=== PATIENT | female | born 1995 | race Caucasian/White ===

== ENCOUNTER 2017-01-13 10:29 | Emergency (ER) | payer OTHER ==
[~2017-01-13] VITALS: Ht 165.1 cm; Wt 49.9 kg
[~2017-01-13 10:29] MED LIST: A.E.R PADS1 JAR TOP; AMOXICILLIN500 M1 PO; APAP500 PO; COLACE 100 MG100 MG PO; DERMOPLAST SPRA56 ML; HYDROCORTISONE30 G9 RECTAL; IBUPROFEN 800800 M1 PO; IROSPAN 24/6 T1 EACH PO; LANOLIN56 GM; PRENATABS FA T1 EACH PO; ZOFRAN ODT4 MG PO
[2017-01-13] MEDS ORDERED: PREDNISONE 20 M20 MG PO (11:22)
[2017-01-13] MEDS ORDERED: AFRIN15 ML NS (11:22)
[2017-01-13] MEDS ORDERED: MOBIC15 MG PO (11:36)
[2017-01-13 12:03] VITALS: BP 114/64
== END 2017-01-13 12:04 | disposition home or self-care (01) ==
LOC: ER 10:29
DX: J06.9 Acute upper respiratory infection, unspecified (principal); G44.209 Tension-type headache, unspecified, not intractable

== ENCOUNTER 2017-04-09 11:31 | Emergency (ER) | payer OTHER ==
[~2017-04-09] VITALS: Ht 165.1 cm; Wt 49.9 kg
[~2017-04-09 11:31] MED LIST changes: +AFRIN15 ML NS; +MOBIC15 MG PO; +PREDNISONE 20 M20 MG PO
[2017-04-09] MEDS ORDERED: TIZANIDINE HCL4 MG PO (13:35)
[2017-04-09] MEDS ORDERED: NAPROSYN500 MG PO (13:35)
[2017-04-09 14:13] VITALS: BP 120/75
== END 2017-04-09 14:15 | disposition home or self-care (01) ==
LOC: ER 11:31
DX: F41.9 Anxiety disorder, unspecified (principal); F10.99 Alcohol use, unspecified with unspecified alcohol-induced disorder

== ENCOUNTER 2017-05-16 13:57 | Emergency (ER) | payer OTHER ==
[~2017-05-16] VITALS: Ht 165.1 cm; Wt 47.6 kg
[~2017-05-16 13:57] MED LIST changes: +NAPROSYN500 MG PO; +TIZANIDINE HCL4 MG PO
[2017-05-16 13:58] VITALS: BP 124/72
[2017-05-16 14:24] LABS: URINE BILIRUBIN NEGATIVE (Negative); URINE BLOOD NEGATIVE (Negative); URINE COLOR YELLOW; URINE GLUCOSE-RANDOM* NEGATIVE (Negative); URINE KETONES NEGATIVE (Negative); URINE LEUKOCYTES-REFLEX NEGATIVE (Negative); URINE PROTEIN (DIPSTICK) NEGATIVE (Negative); URINE UROBILINOGEN 0.2 E.U./dl (0.2-1.0)
[2017-05-17 14:09] LABS: CHLAMYDIA TRACHOMATIS-PCR Negative (Negative); NEISSERIA GONORRHEA-PCR Negative (Negative)
== END 2017-05-16 16:20 | disposition home or self-care (01) ==
LOC: ER 13:57
PROVIDERS: Emergency Medicine
DX: N76.0 Acute vaginitis (principal); F10.99 Alcohol use, unspecified with unspecified alcohol-induced disorder

== ENCOUNTER 2017-06-18 09:23 | Emergency (ER) | payer OTHER ==
[~2017-06-18] VITALS: Ht 165.1 cm; Wt 59.0 kg
[2017-06-18] MEDS ORDERED: LEXAPRO 10 MG T10 M2 PO (09:33)
[2017-06-18 10:14] LABS: HEMATOCRIT 44.9 % (37.0-47.0); HEMOGLOBIN 15.1 gm/dL (12.0-15.0); MCH 30.6 pg (26.0-34.0); MCHC 33.7 g/dL (28.0-37.0); MCV 90.7 fL (80.0-100.0); RBC 4.95 mil/uL (4.20-5.00); RDW 13.2 % (10.5-14.5); WBC 14.4 thou/uL (4.0-11.0)
[2017-06-18 10:20] LABS: CALCIUM 10.3 mg/dL (8.5-10.1); POTASSIUM 3.4 mmol/L (3.5-5.1)
[2017-06-18 10:26] LABS: ALBUMIN 4.6 g/dL (3.4-5.0); TOTAL BILIRUBIN 0.6 mg/dL (<0.1-1.0); TOTAL PROTEIN 7.7 g/dL (6.4-8.2)
[2017-06-18 10:34] LABS: URINE BILIRUBIN NEGATIVE (Negative); URINE BLOOD NEGATIVE (Negative); URINE COLOR YELLOW; URINE GLUCOSE-RANDOM* NEGATIVE (Negative); URINE KETONES NEGATIVE (Negative); URINE LEUKOCYTES-REFLEX NEGATIVE (Negative); URINE PROTEIN (DIPSTICK) NEGATIVE (Negative); URINE UROBILINOGEN 0.2 E.U./dl (0.2-1.0)
[2017-06-18 10:41] LABS: AMP/METHAMP Negative (Negative); BARBITURATES Negative (Negative); BENZODIAZEPINES Negative (Negative); COCAINE Negative (Negative); METHADONE Negative (Negative); OPIATES POSITIVE (Negative); PCP Negative (Negative); THC POSITIVE (Negative)
[2017-06-18 11:27] VITALS: BP 131/95
== END 2017-06-18 11:41 | disposition home or self-care (01) ==
LOC: ER 09:23
PROVIDERS: Emergency Medicine
DX: R11.10 Vomiting, unspecified (principal); F12.10 Cannabis abuse, uncomplicated; F10.10 Alcohol abuse, uncomplicated

== ENCOUNTER 2017-06-21 10:29 | Emergency (ER) | payer OTHER ==
[~2017-06-21] VITALS: Ht 165.1 cm; Wt 52.2 kg
--- NOTE | ~2017-06-21 | EKG ---
[place] [address] [employer] [facility] [place] [place] [address] ELECTROCARDIOGRAM REPORT Name: BEN SPRING JIMMIE [id number] Admission: 06/21/17 Attend Phys: Discharge: 06/21/17 Date of : [birth year] Report #: [id number] THIS REPORT FOR: //name// 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
[~2017-06-21 10:29] MED LIST changes: +LEXAPRO 10 MG T10 M2 PO
[2017-06-21] MEDS ORDERED: IBUPROFEN 600600 M1 PO (12:22)
[2017-06-21] MEDS ORDERED: PHENERGAN 25 MG25 M1 PO (12:22)
[2017-06-21 12:35] VITALS: BP 138/92
== END 2017-06-21 12:35 | disposition home or self-care (01) ==
LOC: ER 10:29
DX: J06.9 Acute upper respiratory infection, unspecified (principal); R11.2 Nausea with vomiting, unspecified; F17.210 Nicotine dependence, cigarettes, uncomplicated; F10.99 Alcohol use, unspecified with unspecified alcohol-induced disorder

== ENCOUNTER 2017-10-08 15:28 | Emergency (ER) | payer OTHER ==
[~2017-10-08] VITALS: Ht 165.1 cm; Wt 52.2 kg
[~2017-10-08 15:28] MED LIST changes: +IBUPROFEN 600600 M1 PO; +PHENERGAN 25 MG25 M1 PO
[2017-10-08] MEDS ORDERED: BUSPIRONE HCL10 MG PO (15:39)
[2017-10-08] MEDS ORDERED: NAPROSYN500 MG PO (15:52)
[2017-10-08] MEDS ORDERED: KEFLEX500 M1 PO (15:52)
[2018-02-10] MEDS ORDERED: NAPROSYN500 MG PO (18:08)
== END 2017-10-08 16:08 | disposition home or self-care (01) ==
LOC: ER 15:28
DX: L03.221 Cellulitis of neck (principal); L72.3 Sebaceous cyst; F17.210 Nicotine dependence, cigarettes, uncomplicated

== ENCOUNTER 2017-10-22 16:02 | Emergency (ER) | payer OTHER ==
[~2017-10-22] VITALS: Ht 157.5 cm; Wt 59.0 kg
[~2017-10-22 16:02] MED LIST changes: +BUSPIRONE HCL10 MG PO; +KEFLEX500 M1 PO
[2018-02-10] MEDS ORDERED: NAPROSYN500 MG PO (18:08)
== END 2017-10-22 16:57 | disposition home or self-care (01) ==
LOC: ER 16:02
DX: J11.1 Influenza due to unidentified influenza virus with other respiratory manifestations (principal); F17.210 Nicotine dependence, cigarettes, uncomplicated

== ENCOUNTER 2018-02-25 18:39 | Emergency (ER) | payer OTHER ==
[~2018-02-25] VITALS: Ht 165.1 cm; Wt 54.4 kg
[2018-02-25 19:41] LABS: URINE BILIRUBIN NEGATIVE (Negative); URINE BLOOD 1+ (Negative); URINE CLARITY CLEAR; URINE COLOR YELLOW; URINE GLUCOSE-RANDOM* NEGATIVE (Negative); URINE KETONES NEGATIVE (Negative); URINE LEUKOCYTES-REFLEX NEGATIVE (Negative); URINE NITRITE-REFLEX NEGATIVE (Negative); URINE PROTEIN (DIPSTICK) NEGATIVE (Negative); URINE SPECIFIC GRAVITY 1.025 (1.005-1.035); URINE UROBILINOGEN 0.2 E.U./dl (0.2-1.0)
[2018-02-25 19:49] LABS: ABSOLUTE NEUTROPHILS 3.2 thou/uL (1.4-8.2); BASOPHILS 0.8 % (0.0-2.0); EOSINOPHILS 2.9 % (0.0-3.0); HEMOGLOBIN 12.7 gm/dL (12.0-15.0); LYMPHOCYTES 36.2 % (24.0-44.0); MCH 31.8 pg (26.0-34.0); MCHC 34.4 g/dL (28.0-37.0); MCV 92.6 fL (80.0-100.0); MONOCYTES 6.1 % (1.0-8.0); PLATELET COUNT 205 thou/uL (150-400); RBC 3.99 mil/uL (4.20-5.00); RDW 12.8 % (10.5-14.5); WBC 5.9 thou/uL (4.0-11.0)
[2018-02-25 19:50] LABS: AMORPHOUS URATES Moderate /LPF (None Seen); CALCIUM OXALATE 0-3 Few /LPF (None Seen); SQUAMOUS 4-10 Moderate /LPF (0-3)
[2018-02-25 19:51] LABS: BACTERIA-REFLEX None Seen /HPF (None Seen); CASTS None Seen /LPF (None Seen); CRYSTALS None Seen /LPF (None Seen); URINE RBC 0-2 Rare /HPF (0-2); URINE WBC-REFLEX None Seen /HPF (0-5)
[2018-02-25 19:53] LABS: AMP/METHAMP Negative (Negative); BARBITURATES Negative (Negative); BENZODIAZEPINES Negative (Negative); COCAINE Negative (Negative); METHADONE Negative (Negative); OPIATES Negative (Negative); PCP Negative (Negative)
[2018-02-25 19:57] LABS: CALCIUM 8.7 mg/dL (8.5-10.1); CREATININE 0.8 mg/dL (0.6-1.0); POTASSIUM 3.7 mmol/L (3.5-5.1)
[2018-02-25 20:03] LABS: ALBUMIN 3.9 g/dL (3.4-5.0); TOTAL BILIRUBIN 0.2 mg/dL (<0.1-1.0); TOTAL PROTEIN 6.7 g/dL (6.4-8.2)
[2018-02-25 20:59] VITALS: BP 122/79
== END 2018-02-25 20:59 | disposition home or self-care (01) ==
LOC: ER 18:39
PROVIDERS: Nurse Practitioner Family
DX: R20.0 Anesthesia of skin (principal); F12.10 Cannabis abuse, uncomplicated; F17.210 Nicotine dependence, cigarettes, uncomplicated

== ENCOUNTER 2018-06-21 14:47 | Emergency (ER) | payer OTHER ==
[~2018-06-21] VITALS: Ht 165.1 cm; Wt 49.9 kg
[2018-06-21 15:09] LABS: URINE BILIRUBIN 1+ (Negative); URINE BLOOD TRACE (Negative); URINE CLARITY CLEAR; URINE COLOR YELLOW; URINE GLUCOSE-RANDOM* NEGATIVE (Negative); URINE KETONES 3+ (Negative); URINE LEUKOCYTES-REFLEX NEGATIVE (Negative); URINE NITRITE-REFLEX NEGATIVE (Negative); URINE PROTEIN (DIPSTICK) NEGATIVE (Negative); URINE SPECIFIC GRAVITY 1.025 (1.005-1.035); URINE UROBILINOGEN 0.2 E.U./dl (0.2-1.0)
[2018-06-21 15:14] LABS: ICTOTEST (BILI CONFIRMATORY) Negative (Negative)
[2018-06-21 15:47] LABS: AMP/METHAMP POSITIVE (Negative); BARBITURATES Negative (Negative); BENZODIAZEPINES Negative (Negative); COCAINE Negative (Negative); METHADONE Negative (Negative); OPIATES Negative (Negative); PCP Negative (Negative)
[2018-06-21 17:16] VITALS: BP 116/82
== END 2018-06-21 17:16 | disposition home or self-care (01) ==
LOC: ER 14:47
PROVIDERS: Emergency Medicine
DX: A64 Unspecified sexually transmitted disease (principal); R39.11 Hesitancy of micturition; R82.5 Elevated urine levels of drugs, medicaments and biological substances; F17.210 Nicotine dependence, cigarettes, uncomplicated

== ENCOUNTER 2019-02-11 18:24 | Emergency (ER) | payer OTHER ==
[~2019-02-11] VITALS: Ht 167.6 cm; Wt 52.2 kg
[2019-02-11] MEDS ORDERED: BACTRIM DS TAB1 EACH PO (20:21)
[2019-02-11] MEDS ORDERED: NAPROXEN375 MG PO (20:21)
[2019-02-11 20:45] VITALS: BP 131/81
== END 2019-02-11 20:46 | disposition home or self-care (01) ==
LOC: ER 18:24
DX: M26.602 Left temporomandibular joint disorder, unspecified (principal); L72.8 Other follicular cysts of the skin and subcutaneous tissue; F17.210 Nicotine dependence, cigarettes, uncomplicated